=== PATIENT | female | born 1985 | race Caucasian/White ===

== ENCOUNTER 2017-06-30 21:52 | Emergency (ER) | payer OTHER ==
[2017-06-30 21:58] VITALS: BP 126/79; PULSE 99; RESP 16; TEMP 98; O2SAT 99
[2017-06-30 23:30] LABS: BASO # 0.1 K/uL (0.0-0.2); BASO % 0.9 % (0.0-2.0); EOS # 0.3 K/uL (0.0-0.7); EOS % 4.2 % (0.0-4.0); HEMATOCRIT 34.8 % (34.0-47.0); LYMPH # 2.6 K/uL (1.0-4.3); LYMPH % 37.8 % (20.0-40.0); MEAN CELL VOLUME 92.1 fl (81.0-99.0); MEAN CORPUSCULAR HEMOGLOBIN 30.9 pg (27.0-31.0); MEAN CORPUSCULAR HGB CONC 33.5 g/dL (33.0-37.0); MEAN PLATELET VOLUME 7.5 fl (7.2-11.7); MONO # 0.7 K/uL (0.0-0.8); NEUT # 3.1 K/uL (1.8-7.0); NEUT % 46.1 % (50.0-75.0); NRBC % 0.1 % (0.0-0.0); RED CELL DISTRIBUTION WIDTH 12.5 % (11.5-14.5); WHITE BLOOD COUNT 6.8 K/uL (4.8-10.8)
[2017-06-30 23:41] LABS: ALB/GLOB RATIO 1.2 (1.0-2.1); ALKALINE PHOSPHATASE 40 U/L (38-126); ALT/SGPT 31 U/L (9-52); AST/SGOT 30 U/L (14-36); BILIRUBIN,TOTAL 0.3 mg/dl (0.2-1.3); BLOOD UREA NITROGEN 14 mg/dl (7-17); CALCIUM 8.8 mg/dL (8.4-10.2); CARBON DIOXIDE 22 mmol/L (22-30); CHLORIDE 107 mmol/L (98-107); GFR AFRICAN-AMERICAN > 60; GLUCOSE,RANDOM 80 mg/dL (65-105); POTASSIUM 3.5 MMOL/L (3.6-5.0); SODIUM 139 mmol/l (132-148); TOTAL PROTEIN 6.9 G/DL (6.3-8.2)
--- NOTE | 2017-06-30 23:59 | ED PDOC ---
HPI: Head Injury Time Seen by Provider: 06/30/17 22:27 Chief Complaint (Nursing): Trauma Chief Complaint (Provider): trauma History Per: Patient History/Exam Limitations: no limitations Injury Occurred (Timing): Days Ago: (1) Patient States: Fell Striking Head (while skiing yesterday-fell backward and hit back of head. ) Severity: Mild Loss Of Consciousness: No Front/Back Head: 1 - injury Additional Complaint(s): 31yo F in ER for eval of head injury sustained yesterday after fall backward while skiing with helmet on. denies: LOC, vomiting nausea weakness to LE/UE, change in memory or speech. now in ER wit c/o unclear thinking, photophobia, headache (pressure diffuse) -not relieved with naproxen or Tylenol), nausea , dizziness and generalized weakness Past Medical History Reviewed: Historical Data, Nursing Documentation, Vital Signs Vital Signs: Last Vital Signs Temp 98 F 06/30/17 21:55 Pulse 99 H 06/30/17 21:55 Resp 16 06/30/17 21:55 BP 126/79 06/30/17 21:55 Pulse Ox 99 06/30/17 21:55 - Medical History PMH: No Chronic Diseases - Family History Family History: States: No Known Family Hx - Allergies Allergies/Adverse Reactions: Allergies Allergy/AdvReac Type Severity Reaction Status Date / Time No Known Allergies Allergy Verified 06/30/17 21:55 Review of Systems ROS Statement: Except As Marked, All Systems Reviewed And Found Negative Constitutional: Positive for: Weakness Gastrointestinal: Positive for: Nausea. Negative for: Vomiting Neurological: Positive for: Headache, Dizziness Physical Exam - Reviewed Nursing Documentation Reviewed: Yes Vital Signs Reviewed: Yes - Physical Exam Appears: Positive for: Non-toxic, No Acute Distress, Uncomfortable Head Exam: Positive for: ATRAUMATIC, NORMAL INSPECTION, NORMOCEPHALIC Skin: Positive for: Normal Color, Warm, DRY Eye Exam: Positive for: Normal appearance, EOMI, PERRL. Negative for: Nystagmus , Periorbital swelling, Periorbital tenderness, Conjunctival injection Neck: Positive for: Normal, Painless ROM, Supple. Negative for: Decreased ROM Cardiovascular/Chest: Positive for: Regular Rate, Rhythm Respiratory: Positive for: CNT, Normal Breath Sounds Neurologic/Psych: Positive for: Alert, engineering research manager II-XII (intact), Oriented, Cerebellar Tests (intact), Gait (stable). Negative for: Motor/Sensory Deficits - Laboratory Results Result Diagrams: 06/30/17 23:26 06/30/17 23:26 - ECG O2 Sat by Pulse Oximetry: 99 - Progress ED Course And Treament: PT offered Tylenol declined prior to CT . CT head r/o ICH FINDINGS: Brain: No acute intracranial hemorrhage. No abnormal extra-axial fluid collection. No herniation. Patent basal cisterns. Preserved story-white matter differentiation. A 6 mm fluid attenuation focus in the right basal ganglia is consistent with an enlarged perivascular space. No evidence of acute ischemia. No evident intracranial mass. Ventricles: No hydrocephalus. Bones/joints: No evident acute fracture. Soft tissues: No acute findings. Sinuses: The imaged paranasal sinuses are clear. Mastoid air cells: The mastoid air cells are clear. Orbits: No evident acute abnormality of the intraorbital contents. IMPRESSION: No acute findings. pt given torodol IV 30mg. Medical Decision Making Medical Decision Making: all labs are WNL. pt stable for d/c at this time d/C: most likely concussion. advised to rest f.u with nuero and motrin for pain. Disposition - Clinical Impression Clinical Impression: Concussion, Head injury - Patient ED Disposition Is Patient to be Admitted: No Counseled Patient/Family Regarding: Studies Performed, Diagnosis, Need For Followup, Rx Given - Disposition Referrals: [facility] [Outside] Disposition: Routine/Home Disposition Time: 02:00 Condition: IMPROVED Instructions: Concussion (ED), Head Injury (ED), Post Concussion Syndrome (ED) Forms: [facility] ED School/Work Excuse
--- NOTE | 2017-07-01 08:01 | CT ---
PROCEDURE: CT HEAD WITHOUT CONTRAST. HISTORY: head injury COMPARISON: None available. TECHNIQUE: Axial computed tomography images were obtained through the head/brain without intravenous contrast. Radiation dose: Total exam DLP = 817.65 mGy-cm. This CT exam was performed using one or more of the following dose reduction techniques: Automated exposure control, adjustment of the mA and/or kV according to patient size, and/or use of iterative reconstruction technique. FINDINGS: HEMORRHAGE: No intracranial hemorrhage. BRAIN: Normal story-white matter differentiation and density are appreciated throughout the cerebrum and cerebellum with the brainstem appearing unremarkable as well. There is no mass effect. There is no suspicious extra-axial fluid collection and the midline brain anatomy appears diffusely unremarkable. VENTRICLES: Unremarkable. No hydrocephalus. CALVARIUM: No destructive bony lesion or displaced fracture identified including through the skullbase. PARANASAL SINUSES: Unremarkable as visualized. No significant inflammatory changes. MASTOID AIR CELLS: Unremarkable as visualized. No inflammatory changes. OTHER FINDINGS: None. IMPRESSION: Unremarkable unenhanced CT of the Head. Follow-up CT or MRI are available if clinically warranted. Concordant preliminary report from [facility], 06/30/2017 11:20 p.m..
== END 2017-07-01 00:53 | disposition home or self-care (01) ==
LOC: H.ER 21:52
DX: S06.0X0A Concussion without loss of consciousness, initial encounter (principal); W19.XXXA Unspecified fall, initial encounter; Y92.89 Other specified places as the place of occurrence of the external cause
CPT/HCPCS: 70450; 80053; 81025; 84484; 85025; 96374; 99284; J1885